=== PATIENT | male | born 1960 | race Caucasian/White ===

== ENCOUNTER → 2016-07-05 | Outpatient (CLI) | payer BC ==
[~2016-07-05] MED LIST: ACHD5005 PO; B12; CPR500T PO; FAMO-119 PO; LISI1TAB10 PO; LVT.1T PO; METR500T PO; PRD20T PO; SIMV20TA3 PO; [UNRECOGNIZED DRUG - OTHER]
--- NOTE | 2016-07-05 15:23 | Diagnostic Imaging Report ---
Ultrasound of the neck. INDICATION: Lump. FINDINGS: The area of the lump in the right aspect of the lower neck near the clavicle demonstrates no definite soft tissue mass seen. There is prominent osseous margin of the medial aspect of the right clavicle seen at the palpable area. No fluid collection seen. IMPRESSION: No soft tissue mass or fluid collection seen. Dictated by: Dictated on workstation # [id number]
== END ==
LOC: RAD 14:28
PROVIDERS: ATTEND Nurse Practitioner
DX: R22.1 Localized swelling, mass and lump, neck (principal)
CPT/HCPCS: 76536

== ENCOUNTER → 2016-07-10 | Outpatient (CLI) | payer BC ==
--- NOTE | 2016-07-10 12:48 | Diagnostic Imaging Report ---
INDICATION: Neck mass at right sternoclavicular junction. This has reportedly doubled in size over the last year. Comparison study: Chest from 2011. FINDINGS: Frontal and lateral views of the chest demonstrate the lungs to be clear. The heart, mediastinum and pulmonary vascularity are normal. Mild degenerative changes present in the spine. Postoperative changes of the left shoulder are stable. IMPRESSION: There are no acute findings. Dictated by: Dictated on workstation # [id number]
== END ==
LOC: RAD 11:48
PROVIDERS: ATTEND Family Medicine
DX: R22.1 Localized swelling, mass and lump, neck (principal)
CPT/HCPCS: 71020

== ENCOUNTER → 2016-08-17 | Outpatient (CLI) | payer BC ==
--- NOTE | 2016-08-17 14:48 | Diagnostic Imaging Report ---
PROCEDURE: CT neck soft tissue without contrast. TECHNIQUE: Multiple contiguous axial images were obtained through the neck without the use of intravenous contrast. INDICATION: Lump along the base of the right neck. Previous ultrasound of 07/05/2016 showed no mass. FINDINGS: Noncontrasted images show a BB marker over the right lower neck above the sternocleidomastoid. This overlies the right sternocleidomastoid which is approximately twice as large as the left. This is enlarged all the way suggesting this is hypertrophy as opposed to a focal mass. The subcutaneous tissue and deep fascial planes appear normal. The deep fat planes appear normal. No evidence of cervical chain adenopathy of pathologic size. The parotid and submandibular glands appear normal. The larynx appears normal. The oropharynx is normal as is the nasopharynx. The parapharyngeal tissue planes appear normal. No bony abnormality is demonstrated. IMPRESSION: Asymmetrical sternocleidomastoid muscles consistent with hypertrophy on the right correlating with the palpable area. Dictated by: Dictated on workstation # [id number]
== END ==
LOC: RAD 13:49
PROVIDERS: ATTEND Family Medicine
DX: R22.1 Localized swelling, mass and lump, neck (principal); M62.89 Other specified disorders of muscle
CPT/HCPCS: 70490

== ENCOUNTER 2018-02-10 12:19 | Outpatient (CLI) | payer BC, OTHER ==
[~2018-02-10] VITALS: Ht 177.8 cm; Wt 110.2 kg
[2018-02-10 12:30] VITALS: BP 150/79
[2018-02-10 13:31] LABS: BASOPHILS % (AUTO) 1 % (0-10); EOSINOPHILS # (AUTO) 0.2 10^3/uL (0.0-0.3); EOSINOPHILS % (AUTO) 4 % (0-10); HEMATOCRIT 44 % (40-54); HEMOGLOBIN 15.2 G/DL (13.3-17.7); LYMPHOCYTES # (AUTO) 1.4 X 10^3 (1.0-4.0); LYMPHOCYTES % (AUTO) 26 % (12-44); MEAN CORPUSCULAR HEMOGLOBIN 31 PG (25-34); MEAN CORPUSCULAR HGB CONC 35 G/DL (32-36); MEAN CORPUSCULAR VOLUME 88 FL (80-99); MEAN PLATELET VOLUME 8.4 FL (7.4-10.4); MONOCYTES # (AUTO) 0.7 X 10^3 (0.0-1.0); MONOCYTES % (AUTO) 12 % (0-12); NEUTROPHILS # (AUTO) 3.2 X 10^3 (1.8-7.8); NEUTROPHILS % (AUTO) 57 % (42-75); PLATELET COUNT 214 10^3/uL (130-400); RED BLOOD COUNT 4.99 10^6/uL (4.35-5.85); WHITE BLOOD COUNT 5.5 10^3/uL (4.3-11.0)
[2018-02-10 13:32] LABS: BILIRUBIN,URINE NEGATIVE (NEGATIVE); CLARITY,URINE CLEAR; COLOR,URINE YELLOW; GLUCOSE, URINE (UA) NEGATIVE (NEGATIVE); KETONES,URINE NEGATIVE (NEGATIVE); LEUKOCYTE ESTERASE ,URINE NEGATIVE (NEGATIVE); NITRITE,URINE NEGATIVE (NEGATIVE); PH,URINE 6.5 (5-9); PROTEIN,URINE NEGATIVE (NEGATIVE); UROBILINOGEN,URINE NORMAL (NORMAL)
[2018-02-10 13:38] LABS: BACTERIA,URINE NEGATIVE /HPF
[2018-02-10 13:41] LABS: PROTHROMBIN TIME PATIENT 12.8 SEC (12.2-14.7)
[2018-02-10] MEDS ORDERED: LEVO150T6 PO (13:47)
[2018-02-10] MEDS ORDERED: CELE200C PO (13:47)
[2018-02-10] MEDS ORDERED: LEVO175T5 PO (13:47)
[2018-02-10] MEDS ORDERED: LISI40TA PO (13:47)
[2018-02-10 13:49] LABS: ERYTHROCYTE SEDIMENTATION RATE 1 MM/HR (0-30)
[2018-02-10 13:50] LABS: ALANINE AMINOTRANSFERASE 37 U/L (0-55); ALBUMIN 4.3 GM/DL (3.2-4.5); ALKALINE PHOSPHATASE 55 U/L (40-136); BILIRUBIN,TOTAL 0.8 MG/DL (0.1-1.0); BUN/CREATININE RATIO 26; CALCIUM 9.6 MG/DL (8.5-10.1); CARBON DIOXIDE 26 MMOL/L (21-32); CHLORIDE 105 MMOL/L (98-107); CREATININE SERUM 0.86 MG/DL (0.60-1.30); GFR ESTIMATED > 60; GLUCOSE 107 MG/DL (70-105); SODIUM 139 MMOL/L (135-145); TOTAL PROTEIN 6.7 GM/DL (6.4-8.2)
[2018-02-10] MEDS ORDERED: OMEG100032 PO (13:50)
[2018-02-10] MEDS ORDERED: CHOL100048 PO (13:50)
[2018-02-10] MEDS ORDERED: VITA1TAB17 PO (13:50)
--- NOTE | 2018-02-10 14:29 | Diagnostic Imaging Report ---
INDICATION: Preoperative evaluation for knee replacement. COMPARISON: 07/10/2016 FINDINGS: Frontal and lateral views of the chest demonstrate normal heart size and pulmonary vascularity. The lungs are clear. There are no signs of infiltrate, pleural effusions or pneumothoraces. The visualized osseous structures show no acute abnormalities. IMPRESSION: 1. No acute process. No signs of infiltrates, effusions or pneumothoraces. Dictated by: Dictated on workstation # [id number]
== END 2018-02-10 13:25 | disposition home or self-care (01) ==
LOC: PREOP 12:19
PROVIDERS: ATTEND Orthopaedic Surgery
DX: Z01.810 Encounter for preprocedural cardiovascular examination (principal); Z01.811 Encounter for preprocedural respiratory examination; Z01.812 Encounter for preprocedural laboratory examination; Z11.2 Encounter for screening for other bacterial diseases; M17.11 Unilateral primary osteoarthritis, right knee; R53.83 Other fatigue
CPT/HCPCS: 36415; 71046; 80053; 81000; 85025; 85610; 85652; 86850; 86900; 86901; 87081

== ENCOUNTER 2018-02-19 05:57 | Inpatient (IN) | payer BC, OTHER ==
--- NOTE | 2018-02-10 12:55 | HISTORY AND PHYSICAL ---
DATE OF SERVICE: DATE OF ADMISSION AND DATE OF SERVICE: 02/19/2018 for right total knee arthroplasty. HISTORY OF PRESENT ILLNESS: The patient is a 57-year-old gentleman with longstanding right knee pain. He has undergone multiple arthroscopies in the past as well as injections. He reports progressive worsening function with marked activity limitations. He reports difficulty at work because of his knee. He has tried rest, injections, anti-inflammatories as well as weight loss, but has been unable to improve because this has elected to proceed with total knee arthroplasty. REVIEW OF SYSTEMS: No chest pain, no shortness of breath. No dysuria. RADIOGRAPHS: Reveal a near complete loss of the medial joint space with moderate patellofemoral joint space narrowing with osteophytes noted in all three compartments. PAST MEDICAL HISTORY: Hypertension and hypothyroidism. PAST SURGICAL HISTORY: Bilateral knee arthroscopies, left shoulder arthroscopy and left carpal tunnel and ulnar nerve decompression. FAMILY HISTORY: Significant for breast cancer, lung cancer. MEDICATIONS: Levothyroxine, lisinopril, Celebrex. PRIMARY CARE PROVIDER: Radha Smith DO. ALLERGIES: MORPHINE. SOCIAL HISTORY: The patient drinks 1 to 2 alcoholic beverages per week and denies tobacco history. PHYSICAL EXAMINATION: GENERAL: The patient is well developed, well nourished, in no acute distress. HEENT: Normocephalic, atraumatic. Pupils are equal, round and reactive to light. Oropharynx is clear. NECK: Supple, no lymphadenopathy. LUNGS: Clear to auscultation bilaterally. HEART: Regular rate and rhythm. ABDOMEN: Soft, nontender, nondistended. EXTREMITIES: Examination of the right knee demonstrates a moderate effusion. He has varus alignment. He is tender along his medial joint line. He has marked pain medially with Mirza's. Range of motion is 0/2/135. He is ligamentously stable in all planes. He ambulates with an antalgic gait. IMPRESSION: Right knee osteoarthritis, unresponsive to conservative measures. PLAN: Right total knee arthroplasty. The risks, benefits, options, ramifications and recovery have been discussed at length with the patient. He understands and wishes to proceed. In addition, the patient will require inpatient admission for gait training, pain management and strengthening. Job ID: [id number] DocumentID: [id number] Dictated Date: 02/10/2018 11:25:46 Underwriter Date: 02/10/2018 12:54:30 Dictated By: RYAN SHEIKH MD
[~2018-02-19] VITALS: Ht 177.8 cm; Wt 110.2 kg
[~2018-02-19 05:57] MED LIST changes: +CELE200C PO; +CHOL100048 PO; +LEVO150T6 PO; +LEVO175T5 PO; +LISI40TA PO; +OMEG100032 PO; +VITA1TAB17 PO
[2018-02-19 06:15] VITALS: BP 127/65
[2018-02-19] MEDS ORDERED: CEFUROXIME INJECTION 1,500 MG in NS (IVPB) 50 ML IV ONE (06:30)
[2018-02-19] MEDS: LACTATED RINGERS 1,000 ML IV PRN ×2 (06:35→08:45)
[2018-02-19] MEDS ORDERED: DEXAMETHASONE 10 MG/ML (DECADRON) 1 ML VIAL ONE (06:49)
[2018-02-19] MEDS ORDERED: ONDANSETRON 4 MG/2 ML (SDV) Z0FRAN ONE ×3 (06:49→09:50)
[2018-02-19] MEDS ORDERED: LIDOCAINE PF 2% 5 ML (XYLOCAINE) VIAL ONE (06:49)
[2018-02-19] MEDS ORDERED: proPOfol 200 MG/20 ML (DIPRIVAN) VIAL IV ONE (06:49)
[2018-02-19] MEDS ORDERED: SEVOFLURANE (ULTANE) 15 ML INHAL SOLN ONE ×2 (06:49→08:58)
[2018-02-19] MEDS ORDERED: fentaNYL INJECTION 100 MCG/2 ML AMP ONE ×3 (06:50→09:01)
[2018-02-19] MEDS ORDERED: MIDAZOLAM 2 MG/2 ML (VERSED) VIAL ONE (06:50)
[2018-02-19] MEDS ORDERED: FAMOTIDINE 20MG/2ML IV (PEPCID) ONE (06:51)
[2018-02-19] MEDS ORDERED: SCOPOLAMINE 1.5 MG (TRANSDERM-SCOP) PATCH ONE (06:51)
[2018-02-19] MEDS ORDERED: FAMOTIDINE 20MG/2ML IV (PEPCID) IV ONE (07:00)
[2018-02-19] MEDS ORDERED: ONDANSETRON 4 MG/2 ML (SDV) Z0FRAN IV ONE (07:00)
[2018-02-19] MEDS ORDERED: SCOPOLAMINE 1.5 MG (TRANSDERM-SCOP) PATCH TOP ONE (07:00)
[2018-02-19] MEDS ORDERED: FENTANYL IV PRN (07:15)
[2018-02-19] MEDS ORDERED: SODIUM CHLORIDE IV PRN (07:15)
[2018-02-19] MEDS ORDERED: ONDANSETRON 4 MG/2 ML (SDV) Z0FRAN IVP PRN ×2 (07:15→09:30)
[2018-02-19] MEDS ORDERED: diphenhydrAMINE 50 MG/ML INJ (BENADRYL) IVP PRN (07:15)
[2018-02-19] MEDS ORDERED: ACETAMINOPHEN 325 MG TABLET PO PRN (07:15)
--- NOTE | 2018-02-19 07:29 | Progress Note-Post Operative ---
Post-Operative Progess Note Surgeon (s)/Manager Recovery (s) Surgeon RYAN SHEIKH MD Manager Recovery: Luis Purvis Pre-Operative Diagnosis right knee primary osteoarthritis Post-Operative Diagnosis right knee primary osteoarthritis Procedure & Operative Findings Date of Procedure 02/19/18 Procedure Performed/Findings right total knee arthroplasty Anesthesia Type GETA Estimated Blood Loss Estimated blood loss (mL): minimal Specimens/Packing Specimens Removed none Packing: none RYAN SHEIKH MD Feb 19, 2018 07:29
--- NOTE | 2018-02-19 07:29 | Progress Note-Pre Operative ---
Pre-Operative Progress Note H&P Reviewed The H&P was reviewed, patient examined and no changes noted. Date Seen by Provider: Feb 19, 2018 Time Seen by Provider: 07:15 Date H&P Reviewed: Feb 19, 2018 Time H&P Reviewed: 07:11 Pre-Operative Diagnosis: right knee primary osteoarthritis RYAN SHEIKH MD Feb 19, 2018 07:28
[2018-02-19] MEDS ORDERED: INTRA-ARTICULAR IU ONE ×5 (07:30)
[2018-02-19] MEDS ORDERED: OXYC1TAB87 PO (07:31)
--- NOTE | 2018-02-19 07:33 | D/C HH Face to Face Order ---
D/C Face to Face Orders Instructions for Patient Via [facility], Patient Instructions/FollowUp: three weeks Physician to follow Patient: three weeks Discharge Diet for Home: Regular Diet Patient Data-Allergies,Ht & Wt Patient Allergies: Coded Allergies: morphine (Verified Allergy, Unknown, 02/10/18) Height (Feet): 5 Height (Inches): 10.00 Weight (Pounds): 243 Weight (Ounces): 0.0 Home Health Need/Face to Face Date of Face to Face: Feb 19, 2018 Clinical Findings: Instability, Muscle weakness, Pain with ambulation, Unsteady gait I have seen Pt [id number]: Yes Discharged To: Home Diagnosis/Conditions: right total knee arthroplasty Patient is Homebound due to: Gurjit fall risk due to instabilty, Muscle weakness , Pain w/ambulation Homebound Status Due to the above stated illness, injury or surgical procedure (medical condition or diagnosis) and associated clinical findings, the patient is homebound because of his/her inability to leave home except with aid of a supportive device and/or person AND leaving the home requires a considerable and taxing effort or is medically contraindicated. Pt req the following assistanc: [facility] Nursing Orders Home Health Services Order: Physical Therapy-Evaluate & Treat Therapy Orders Therapy Orders: Physical Therapy, PT to assess for OT Therapy Specific Orders: Eval assistive deivces (DC right knee misael and apply steri strips 03/05/18), Teach enviro modifications/safety, Gait training, Increase strength/endurance, Provider maintenance therapy, Restore ROM Certify Stmt I certify that this patient is under my care and that I, a nurse practitioner or a physician; a assistant store leader working with me, had a face to face encounter that - meets the physician face to face encounter requirements with this patient as dated. RYAN SHEIKH MD Feb 19, 2018 07:33
[2018-02-19] MEDS ORDERED: TRANEXAMIC ACID 100 MG/ML 10 ML INJECTION IV ONE (07:57)
[2018-02-19] MEDS ORDERED: morphine INJ 10 MG/ML 1ML (SYR OR VIAL) ONE (09:15)
[2018-02-19] MEDS ORDERED: HYDROmorphone 2 MG/ML VIAL (DILAUDID) ONE (09:23)
[2018-02-19] MEDS ORDERED: HYDROmorphone 2 MG/ML VIAL (DILAUDID) IV ONE (09:30)
[2018-02-19] MEDS ORDERED: PROMETHAZINE INJ 25 MG/ML (PHENERGAN) AMP IVP ONE (09:30)
[2018-02-19] MEDS ORDERED: fentaNYL INJECTION 100 MCG/2 ML AMP IVP ONE (09:30)
[2018-02-19 10:30] VITALS: BP 153/71
[2018-02-19] MEDS: SENNA W/DOCUSATE (SENOKOT S) TABLET PO SCH ×2 (10:50→21:20)
--- NOTE | 2018-02-19 11:08 | Diagnostic Imaging Report ---
INDICATION: Right knee pain. FINDINGS: AP and lateral views of the right knee were obtained following joint arthroplasty. The prosthesis appears to be in good position. The alignment is normal. IMPRESSION: Good alignment of the right knee following joint arthroplasty. Dictated by: Dictated on workstation # [id number]
[2018-02-19] MEDS ORDERED: fentaNYL PCA 1,000 MCG/NS 80 ML (TOTAL VOLUME 100 ML) INJ SCH ×2 (11:15)
[2018-02-19] MEDS: NS IV 1000 ML 1,000 ML IV SCH ×2 (11:29→22:58)
[2018-02-19 12:00] VITALS: BP 148/70
[2018-02-19] MEDS ORDERED: FLU QUADRIvalent (5+ YOA) 2018-2019 (AFLURIA) 0.5 ML IM ONE (12:15)
--- NOTE | 2018-02-19 12:25 | OPERATIVE REPORT ---
DATE OF SERVICE: 02/19/2018 PREOPERATIVE DIAGNOSIS: Right knee primary osteoarthritis. POSTOPERATIVE DIAGNOSIS: Right knee primary osteoarthritis. PROCEDURE: Right total knee arthroplasty. SURGEON: Jens Sheikh MD. HARD ROCK MINER BLASTING: Luis Purvis, who assisted throughout the procedure and closed the incision. ANESTHESIA: General endotracheal by Dr. Willis. TOURNIQUET TIME: Approximately 80 minutes at 300 mmHg. ESTIMATED BLOOD LOSS: Minimal. DRAINS: None. COMPLICATIONS: None. MATERIALS: MicroPort cemented size 5 femur, cemented size 5, tibia with a 10 mm insert and cemented size 32 patella. The patient was transported to the recovery room awake and in stable condition. POSTOPERATIVE PLAN: Routine protocol. STATEMENT OF MEDICAL NECESSITY: The patient is a 57-year-old gentleman with longstanding progressive right knee pain. He had undergone treatment with multiple arthroscopies as well as injections and anti-inflammatories. His knee pain progressed to the point where he was having difficulty with activities of daily living and due to failure to respond to conservative measures, the patient elected to proceed with surgical intervention. DESCRIPTION OF PROCEDURE: After risks and benefits of the procedure were discussed and questions were answered and informed consent was signed and placed on chart, the operative site was confirmed in the preoperative holding area initialed by the surgeon. The patient was then transported to the operating room and after adequate levels of general endotracheal anesthetic were obtained and timeout was called confirming the operative site, the right lower extremity was prepped and draped in the usual sterile fashion with the leg elevated and the knee flexed, the tourniquet was inflated to 300 mmHg. Standard anterior approach was utilized. Hemostasis was obtained with cautery. A medial parapatellar arthrotomy was performed leaving 1 cm cuff on the patella for later reapproximation. A portion of the fat pad was resected. A subperiosteal release was performed on the proximal medial tibia being careful to stay on the bony surface. ACL was resected. Intramedullary guide was passed into the femur. The distal cutting block was placed. The distal cut was made and the femur was sized to a size 5. The 5 cutting block was placed parallel to the epicondylar axis and cuts were made from posterior to anterior. A subperiosteal release was then carefully performed on the posterior distal femur being careful to stay on the bony surface. The intramedullary guide was then passed into the tibia. The drop lesley transected the intramedullary access and the cut was made. The baseplate was placed and again the drop lesley transected the intramedullary access. This was prepared with a drill and a keel punch. The trials were inserted. The patella was then prepared by resecting 10 mm off the undersurface using freehand technique. The peg guide was placed and the peg holes were drilled. The trials were inserted. The knee was taken through a range of motion. Full extension was easily obtained. A 120 degrees of flexion with gravity was easily obtained. The patella tracked well. There was no anterior/posterior or medial/lateral laxity in flexion or extension. The trochlear cut was made and the trials were removed. The joint was copiously irrigated with pulse lavage. Periarticular block was placed in the posterior capsule, medial and lateral retinaculum extensor mechanism and subcutaneous tissues. The bone ends were irrigated and dried. The tibial baseplate was then cemented into position. Excessive cement was removed. The superior surface was irrigated and dried and the polyethylene insert was placed. The distal femur was irrigated and dried and the femoral prosthesis was cemented into the position. The knee was brought out in full extension until the cement had cured. The undersurface of the patella was irrigated and dried. The patellar button was cemented into position. Excess cement was removed. Once the cement had cured, the knee was taken through a range of motion. Full extension was obtained and 120 degrees of gravity was easily obtained. There was no anterior/posterior or medial/lateral laxity in flexion or extension. The patella tracked well. Joint was further irrigated with a pulse lavage. Arthrotomy was closed with #2 Tevdek in [id number] interrupted fashion. The knee was flexed and no undue tension was noted at the repair site. Subcutaneous tissues were irrigated with pulse lavage using a total of 6 liters throughout the procedure. A 0 Vicryl was used for the deep subcutaneous tissue, 2-0 Vicryl for the superficial subcutaneous tissue and misael were used on the skin. A soft dressing was applied. The tourniquet was deflated and the patient was transferred to the recovery room awake and in stable condition. Job ID: [id number] DocumentID: [id number] Dictated Date: 02/19/2018 09:19:25 Tool Grinder Operator Date: 02/19/2018 12:24:46 Dictated By: JENS SHEIKH MD
--- NOTE | 2018-02-19 12:33 | Progress Note-Standard ---
Standard Progress Note Progress Notes/Assess & Plan Date Seen by a Provider: Feb 19, 2018 Time Seen by a Provider: 12:31 Progress/Assessment & Plan post op check denies paresthesias radiographs--HW well positioned without fracture RLE--intact DF and PF of toes and ankle with 2 plus DP pulse and brisk cap refill. sensation intact throughout s/p RTKA mobilize as able RYAN SHEIKH MD Feb 19, 2018 12:33
[2018-02-19] MEDS: CEFUROXIME INJECTION 750 MG in NS (IVPB) 50 ML IV SCH ×2 (15:05→22:57)
--- NOTE | 2018-02-19 15:22 | Physical Therapy Evaluation ---
PT Evaluation-General Medical Diagnosis Admission Date Feb 19, 2018 at 05:57 Medical Diagnosis: TKA R Onset Date: Feb 19, 2018 Therapy Diagnosis Therapy Diagnosis: General weakness/ Debility Height/Weight Height (Feet): 5 Height (Inches): 10.00 Weight (Pounds): 243 Weight (Ounces): 0.0 Precautions Precautions/Isolations: Fall Prevention, Standard Precautions Weight Bear Status Right Lower Extremity: Right Weight Bearing/Tolerated Left Lower Extremity: Left Full Weight Bearing Referral Physician: Luis Purvis Reason for Referral: Evaluation/Treatment Medical History Pertinent Medical History: HTN, Hypothroidism Current History Patient had total knee surgery on R knee on 02/19/18. Reviewed History: Yes Social History Home: Multilevel Current Living Status: Children Entry Into Home: Stairs With Railing PT Steps Into Home: 5 PT Steps Inside Home: 0 Prior/Core FIM Prior Level of Function Functional Jasper Measure 0=Not Assessed/NA 4=Minimal Assistance 1=Total Assistance 5=Supervision or Setup 2=Maximal Assistance 6=Modified Jasper 3=Moderate Assistance 7=Complete IndependenceIRFPAI Quality Coding Scale 6 Independent with activity with or without an assistive device 5 Patient requires set up or clean up by helper. Patient completes activity by themselves 4 Supervision or touching assist (CGA). Kenyon provide cues , steadying assist 3 The helper provides less than half the effort to complete the activity 2 The helper provides more than half the effort to complete the activity 1 Dependent. The helper does all the effort to complete an activity 7 Patient refused to complete or attempt activity 9 The patient did not perform the activity before the current illness or injury 88 Not attempted due to Medical conditions or safety concerns Bed Mobility: 7 Transfers (B,C,W/C) (FIM): 7 Gait: 7 Stairs: 7 PT Evaluation-Current Subjective Pt asleep in room when PT arrived. Pt reported he has been experiencing nausea since he got out of surgery and nursing has reported that he dry heaves with any movement. Pt agreed to PT evaluation. Pain Numeric Pain Scale: 5-Moderate Pain Location: Right Location Body Site: Knee Pain Description: Acute Pt/Family Goals to be independent at home Objective Patient Orientation: Normal For Age Attachments: SCD's, Polar Pack, IV ROM/Strength ROM Upper Extremities WNL ROM Lower Extremities Right knee flexion 85 degrees and 2-3 degrees from complete extension. L WNL Strength Upper Extremities NT Strength Lower Extremities LEs will be tested once patient nausea subsides. Patient did not receive nerve block and was unable DF his right foot. Neuromuscular (Tone, Coordination, Reflexes) NT Sensory Vision: Functional Hearing: Functional Sensation Right Upper Extremit: Intact Sensation Left Upper Extremity: Intact Sensation Right Lower Extremit: Intact Sensation Left Lower Extremity: Intact Transfers Functional Jasper Measure 0=Not Assessed/NA 4=Minimal Assistance 1=Total Assistance 5=Supervision or Setup 2=Maximal Assistance 6=Modified Jasper 3=Moderate Assistance 7=Complete Jasper Transfers (B, C, W/C) (FIM): 0 Scootin Rollin Supine to/from Sit: 0 Sit to/from Stand: 0 Balance Sitting Static: Good Sitting Dynamic: Good Standing Static: Good Standing Dynamic: Good Assessment/Needs Pt experienced extreme nausea throughout the duration of the evaluation. Pt experienced symptoms during questions and had to pause multiple times to let symptoms pass. Pt completed SAC, Quad sets, heel slides and SLR while laying bed. Pt understood to continue on his own when therapy is not present. Patient was set up in CPM when PT left room set to 70/-2 Rehab Potential: Fair PT Usp Goals Technician Helper Instrument Goals PT Usp Goals Time Frame: Feb 26, 2018 Transfers (B,C,W/C) (FIM): 5 Gait (FIM): 5 Gait distance (FIM): 3=150 ft Distance: 150' Gait Level of Assist: 5 Gait Assistive Device: FWW PT Plan Problem List Problem List: Activity Tolerance, Functional Strength, Safety, Balance, Gait, Transfer, Bed Mobility, ROM Treatment/Plan Treatment Plan: Continue Plan of Care Treatment Plan: Bed Mobility, Education, Functional Activity Jorge Luis, Functional Strength, Gait, Safety, Therapeutic Exercise, Transfers Treatment Duration: Feb 26, 2018 Frequency: 11 times per week Estimated Hrs Per Day: .25 hour per day Patient and/or Family Agrees t: Yes Safety Risks/Education Patient Education: Gait Training, Steps, Reviewed Precautions, Correct Positioning Teaching Recipient: Patient Teaching Methods: Demonstration, Discussion Response to Teaching: Verbalize Understanding Discharge Recommendations Plan Patient will perform bed mobility and transfer training, balance and endurance training, functional strengthening, stair training, gait training, and education , to improve functional mobility and independence at home. Therapy D/C Recommendations: Home w/ Family Support Time/GCodes Time In: 240 Time Out: 310 Total Billed Treatment Time: 30 Total Billed Treatment 1 visit EVM - 20' Ex - 10' SERA DUFFY PT Feb 19, 2018 15:22
[2018-02-19 15:35] VITALS: BP 142/70
[2018-02-19] MEDS ORDERED: CHOL5000 PO (16:03)
[2018-02-19] MEDS ORDERED: OMEG1CAP24 PO (16:03)
[2018-02-19 19:07] VITALS: BP 145/80
[2018-02-19] MEDS ORDERED: NON-FORMULARY MEDICATION 1 EA EA (Levothyroxine Sodium 175 MCG) PO SCH (19:15)
[2018-02-19] MEDS ORDERED: LORazepam 0.5 MG (ATIVAN) TABLET PO PRN (19:15)
--- NOTE | 2018-02-19 19:22 | Consultation ---
History of Present Illness History of Present Illness Patient Consulted On(neto/time) 02/19/18 19:17 Date Seen by Provider: Feb 19, 2018 Time Seen by Provider: 19:17 History of Present Illness This is a 57 year old male with history of hypertension, hypothyroidism and metabolic syndrome who underwent a right total knee arthroplasty by Dr. Sheikh this morning. He has had post-op vertiog and nausea today but tonight states he is feeling a little better. Denies pain. Allergies and Home Medications Allergies Coded Allergies: morphine (Verified Allergy, Unknown, 02/10/18) Home Medications Celecoxib 200 Mg Capsule, 200 MG PO BID, (Reported) Cholecalciferol (Vitamin D3) 5,000 Unit Capsule, 10,000 UNIT PO DAILY, (Reported ) Levothyroxine Sodium 150 Mcg Tablet, 150 MCG PO Q48H, (Reported) alternate with the 175mcg dose Levothyroxine Sodium 175 Mcg Tablet, 175 MCG PO Q48H, (Reported) alternate with the 150mcg dose Lisinopril 40 Mg Tablet, 40 MG PO DAILY, (Reported) [place]-3 Fatty Acids/Fish Oil 1 Each Capsule.dr, 2 CAP PO DAILY, (Reported) Oxycodone HCl/Acetaminophen 1 Each Tablet, 1 EACH PO Q4H PRN for PAIN-MODERATE Prescribed by: RYAN SHEIKH on 02/19/18 0731 Vitamin B Complex 1 Each Tablet, 1 TAB PO DAILY, (Reported) Patient Home Medication List Home Medication List Reviewed: Yes Past Zwbiyoh-Plzokp-Xzdbtw Hx Patient Social History Alcohol Use: Occasionally Uses Recreational Drug Use: No Smoking Status: Former Smoker Former Smoker, Quit: Feb 11, 1984 Recent Foreign Travel: No Contact w/Someone Who Travel: No Recent Infectious Disease Expo: No Recent Hopitalizations: No Seasonal Allergies Seasonal Allergies: No Past Medical History Surgeries: Yes (bilat knee scopes x8 total, L shoulder sx x2, varicocelectomy, L CTR, ) Respiratory: No Cardiac: No Neurological: No Genitourinary: No Gastrointestinal: No Musculoskeletal: Yes (R knee osteoarthritis) Endocrine: Yes HEENT: No (wears glasses, ) Cancer: No Psychosocial: No Integumentary: No Blood Disorders: No Family Medical History Alcoholism 19 FATHER Diabetes mellitus 19 MOTHER FH: breast cancer 19 MOTHER Hypertension 19 MOTHER Kidney disease Neoplasm Respiratory disorder 19 FATHER (lung cancer) Review of Systems-General Constitutional: No no symptoms reported, No see HPI, No chills, No diaphoresis , No dizziness, No fever, No malaise, No weakness, No weight gain, No weight loss, No other EENTM: No see HPI, No no symptoms reported, No ear discharge, No hearing loss, No ear pain, No blurred vision, No double vision, No eye pain, No tearing, No vision loss, No dental problems, No hoarseness, No mouth pain, No mouth swelling , No epistaxis, No nose congestion, No nose pain, No throat pain, No throat swelling, No other Respiratory: No no symptoms reported, No see HPI, No cough, No dyspnea on exertion, No hemoptysis, No orthopnea, No phlegm, No short of breath, No stridor , No wheezing, No other Cardiovascular: No no symptoms reported, No see HPI, No chest pain, No edema, No Hx of Intervention, No palpitations, No syncope, No vascular heart diseas, No other Gastrointestinal: nausea Genitourinary: No no symptoms reported, No see HPI, No decreased output, No discharge, No dysuria, No frequency, No hematuria, No hesitancy, No incontinence , No nocturia, No pain, No other Musculoskeletal: joint pain (right knee pain currently well controlled) Skin: No no symptoms reported, No see HPI, No change in color, No change in hair/nails, No dryness, No hx of skin cancer, No lesions, No lumps, No pruritus , No rash, No other Psychiatric/Neurological: Other (vertigo) Physical Exam-General Problems Physical Exam Vital Signs Vital Signs - First Documented 02/19/18 02/19/18 06:15 10:30 Temp 97.1 Pulse 60 Resp 18 B/P (MAP) 127/65 (85) Pulse Ox 97 O2 Delivery Room Air O2 Flow Rate 2.00 Capillary Refill : Less Than 3 Seconds General Appearance: WD/WN, no apparent distress HEENT: normal ENT inspection Neck: supple Respiratory: lungs clear Cardiovascular: regular rate, rhythm, gallop/S4 Gastrointestinal: normal bowel sounds, non tender, soft Rectal: deferred Back: no CVA tenderness Extremities: non-tender, no pedal edema, no calf tenderness Neurologic/Psychiatric: alert, oriented x 3 Skin: warm/dry (with dressing to right knee in place) Assessment/Plan Assessment/Plan Admission Diagnosis/Plan 1. Right Total Knee Arthroplasty with post-op vertigo and nausea--has scopolamine patch on and will give ativan tonight 2. Hypertension--resume home medications in AM 3. Hypothyroidism--resume home thyroid dose Clinical Quality Measures DVT/VTE Risk/Contraindication: Risk Factor Score Per Nursin RFS Level Per Nursing on Admit: 4+=Very High GUALBERTO MENA DO Feb 19, 2018 19:22
[2018-02-19] MEDS ORDERED: NON-FORMULARY MEDICATION 1 EA EA (Celecoxib (Celebrex) 200 MG) PO SCH (21:00)
[2018-02-19] MEDS: FAMOTIDINE 20 MG (PEPCID) TABLET PO SCH (21:22)
[2018-02-20 00:44] VITALS: BP 145/67
[2018-02-20 03:59] VITALS: BP 118/67
[2018-02-20 04:36] LABS: HEMOGLOBIN 12.7 G/DL (13.3-17.7)
[2018-02-20] MEDS: MULTIVIT W/MINERALS TAB (THERAGRAN M) PO SCH (06:10)
[2018-02-20] MEDS: CELECOXIB 100 MG (CeleBREX) CAP PO SCH ×2 (06:10→17:36)
[2018-02-20] MEDS ORDERED: LEVOTHYROXINE 150 MCG (LEVOTHROID) TAB PO SCH (06:30)
[2018-02-20 08:00] VITALS: BP 131/60
--- NOTE | 2018-02-20 08:05 | Progress Note-Standard ---
Standard Progress Note Progress Notes/Assess & Plan Date Seen by a Provider: Feb 20, 2018 Time Seen by a Provider: 08:04 Progress/Assessment & Plan post op check denies paresthesias radiographs--HW well positioned without fracture RLE--intact DF and PF of toes and ankle with 2 plus DP pulse and brisk cap refill. sensation intact throughout s/p RTKA mobilize as able Final Diagnosis no complaints Vital Signs Date Time Temp Pulse Resp B/P (MAP) Pulse Ox O2 Delivery O2 Flow Rate FiO2 02/20/18 07:09 95 Room Air 02/20/18 06:00 18 02/20/18 03:59 97.8 72 18 118/67 (84) 98 Nasal Cannula 2.00 02/20/18 00:44 98.0 81 18 145/67 (93) 98 Nasal Cannula 2.00 02/19/18 23:50 Nasal Cannula 2.50 02/19/18 19:07 96.7 77 18 145/80 (101) 98 Nasal Cannula 2.00 02/19/18 15:35 96.9 54 16 142/70 (94) 99 Nasal Cannula 2.00 02/19/18 14:10 Nasal Cannula 2.50 02/19/18 12:15 96 Nasal Cannula 2.00 02/19/18 12:00 97.8 75 16 148/70 (96) 100 Nasal Cannula 2.00 02/19/18 10:30 98.6 80 16 153/71 (98) 100 Nasal Cannula 2.00 I & O 02/20/18 07:00 Intake Total 3200 ml Output Total 1400 ml Balance 1800 ml Laboratory Tests Test 02/20/18 04:20 Range/Units Hemoglobin 12.7 L 13.3-17.7 G/DL Hematocrit 36 L 40-54 % RLE--dressing intact. No calf tenderness. NVI distally. Intact DF of ankle s/p RTKA doing well PT/OT RYAN SHEIKH MD Feb 20, 2018 08:05
[2018-02-20] MEDS: oxyCODONE/APAP 5/325MG (PERCOCET 5) TABLET PO PRN ×5 (08:46→23:55)
[2018-02-20] MEDS: SENNA W/DOCUSATE (SENOKOT S) TABLET PO SCH ×2 (08:53→20:42)
[2018-02-20] MEDS: lisINopril 40 MG (PRINIVIL) TABLET PO SCH (08:55)
[2018-02-20] MEDS: FAMOTIDINE 20 MG (PEPCID) TABLET PO SCH ×2 (08:55→20:42)
[2018-02-20] MEDS: ENOXAPARIN 30 MG/0.3 ML (LOVENOX) SYR SC SCH ×2 (08:55→19:42)
[2018-02-20] MEDS: ASPIRIN E.C. 81 MG (ECOTRIN) TAB PO SCH (08:57)
[2018-02-20] MEDS: VITAMIN D3 5,000 UNITS (CHOLECALCIFEROL ) CAPSULE PO SCH (08:57)
[2018-02-20] MEDS ORDERED: NON-FORMULARY MEDICATION 1 EA EA (Cholecalciferol (Vitamin D3) (Vitamin D3) 10,000 UNIT) PO SCH (09:00)
[2018-02-20] MEDS: NS IV 1000 ML 1,000 ML IV SCH ×2 (09:00→23:54)
--- NOTE | 2018-02-20 09:26 | Physical Therapy Daily Note ---
PT Daily Note-Current Subjective Pt awake in bed when PT arrived. Pt reported that he just finished breakfast and that his nausea had subsided. Pt agreed to get up and exercise with PT. Pain Numeric Pain Scale: 5-Moderate Pain Location: Right Location Body Site: Knee Pain Description: Acute Mental Status Patient Orientation: Normal For Age Attachments: IV Transfers Functional [place] Measure 0=Not Assessed/NA 4=Minimal Assistance 1=Total Assistance 5=Supervision or Setup 2=Maximal Assistance 6=Modified [place] 3=Moderate Assistance 7=Complete IndependenceIRFPAI Quality Coding Scale 6 Independent with activity with or without an assistive device 5 Patient requires set up or clean up by helper. Patient completes activity by themselves 4 Supervision or touching assist (CGA). [place] provide cues , steadying assist 3 The helper provides less than half the effort to complete the activity 2 The helper provides more than half the effort to complete the activity 1 Dependent. The helper does all the effort to complete an activity 7 Patient refused to complete or attempt activity 9 The patient did not perform the activity before the current illness or injury 88 Not attempted due to Medical conditions or safety concerns Transfers (B, C, W/C) (FIM): 5 Scootin Rollin Supine to/from Sit: 5 Sit to/from Stand: 5 Weight Bearing Right Lower Extremity: Right Weight Bearing/Tolerated Left Lower Extremity: Left Full Weight Bearing Gait Training Gait (FIM): 5 Distance (FIM): 3=150 ft Distance: 150' Gait Level of Assist: 5 Gait Persons Needed: 1 Gait Assistive Device: FWW Exercises Supine Ex: Quad Set, Heel Slides, Straight leg raise Seated Therapy Exercises: Long arc quads, Hamstring Curls Assessment Current Status: Good Progress Pt was able to ambulate 150' with a FWW requiring SBA. Patient did not show any signs of fatigue but did mention he had a 5/10 pain rating. Patient performed bed exercises prior to ambulation and return to his recliner when coming back to his room. Pt will benefit from strengthening and ambulation with PT to improve overall function. PT Assisted Goals Assisted Goals PT Cryptozoologist Goals Time Frame: Feb 26, 2018 Transfers (B,C,W/C) (FIM): 5 Gait (FIM): 5 Gait distance (FIM): 3=150 ft Distance: 150' Gait Level of Assist: 5 Gait Assistive Device: FWW PT Plan Problem List Problem List: Activity Tolerance, Functional Strength, Safety, Balance, Gait, Transfer Treatment/Plan Treatment Plan: Continue Plan of Care Treatment Plan: Bed Mobility, Education, Functional Activity Jorge Luis, Functional Strength, Gait, Safety, Therapeutic Exercise, Transfers Treatment Duration: Feb 26, 2018 Frequency: 11 times per week Estimated Hrs Per Day: .25 hour per day Patient and/or Family Agrees t: Yes Time/GCodes Time In: 820 Time Out: 850 Total Billed Treatment Time: 30 Total Billed Treatment 1 visit GT - 15' EX - 15' ZHAO CHEN PT Feb 20, 2018 09:26
--- NOTE | 2018-02-20 11:05 | Anesthesia-General Post-Op ---
General Patient Condition Mental Status/LOC: Same as Preop Cardiovascular: Satisfactory Nausea/Vomiting: Absent (Patient did have some PONV. Treated per nursing.) Respiratory: Satisfactory Pain: Controlled Complications: Absent Post Op Complications Complications None Follow Up Care/Instructions Patient Instructions None needed. Anesthesia/Patient Condition Patient Condition Patient is doing well, no complaints, stable vital signs, no apparent adverse anesthesia problems. No complications reported per nursing. ELIZA PHAM CRNA Feb 20, 2018 11:05
--- NOTE | 2018-02-20 11:45 | Occupational Therapy Eval ---
OT Evaluation-General/PLF Medical Diagnosis Admission Date Feb 19, 2018 at 05:57 Medical Diagnosis: TKA R Onset Date: Feb 19, 2018 Therapy Diagnosis Therapy Diagnosis: decr self care, decr funct mobility Height/Weight Height (Feet): 5 Height (Inches): 10.00 Weight (Pounds): 243 Weight (Ounces): 0.0 Precautions Precautions/Isolations: Standard Precautions Safety Interventions: None Weight Bear Status Weight Bearing Restriction: Weight Bearing/Tolerated Location Restriction: R LE Referral Physician: Luis Purvis Referral Reason: Evaluation/Treatment Medical History Pertinent Medical History: HTN, Hypothroidism Additional Medical History L shoulder arthroscopy, L CTR and ulnar nerve decompression. Multiple knee scopes. Metabolic syndrome. Pt reported hx concussion and cervical problems. Current History Elective R total knee replacement. Nausea and vomiting post-op Reviewed History: Yes Social History Home: Multilevel Current Living Status: Children Entry Into Home: Stairs With Railing Steps Into Home: 5 Steps Inside Home: 0 ADL-Prior Level of Function Functional [place] Measure 0=Not Assessed/NA 4=Minimal Assistance 1=Total Assistance 5=Supervision or Setup 2=Maximal Assistance 6=Modified [place] 3=Moderate Assistance 7=Complete [place] ADL PLOF Comments Pt reported that he has been able to manage all of his basic ADLs, with more recent occasional difficulty with socks and shoes, due to knee pain. 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 No cognitive issues. Self Care OT Current Status Subjective Pt seen in room, up in recliner, agreeable to OT. Reported not really in any pain. Appearance Alert, cooperative Mental Status/Objective Patient Orientation: Person, Place, Time, Situation Attachments: IV, Polar Pack Current Glasses/Contacts: Yes Hand Dominance: Right Upper Extremity ROM Grossly WFL bilat Upper Extremity Sensation residual numbness some fingers L hand Upper Extremity Strength Grossly WFL bilat ADL-Treatment ADL-Current Pt reported that he has been up to the bathroom but does ask for help due to IV and equipment.. Walked 150 ft with SBA, FWW with PT. Pt verbalized adapted techniques he used at home for ADLs but was interested in equipment for socks/ shoes. Pt left up in recliner, all needs met. Functional [place] Measure 0=Not Assessed/NA 4=Minimal Assistance 1=Total Assistance 5=Supervision or Setup 2=Maximal Assistance 6=Modified [place] 3=Moderate Assistance 7=Complete IndependenceIRFPAI Quality Coding Scale 6 Independent with activity with or without an assistive device 5 Patient requires set up or clean up by helper. Patient completes activity by themselves 4 Supervision or touching assist (CGA). [place] provide cues , steadying assist 3 The helper provides less than half the effort to complete the activity 2 The helper provides more than half the effort to complete the activity 1 Dependent. The helper does all the effort to complete an activity 7 Patient refused to complete or attempt activity 9 The patient did not perform the activity before the current illness or injury 88 Not attempted due to Medical conditions or safety concerns Education OT Patient Education: Modified ADL techniques, Purpose of tx/functional activities, Rehab process, Transfer techniques, Use of adapted equipment Teaching Recipient: Patient Teaching Methods: Discussion Response to Teaching: Verbalize Understanding OT [facility] Goals Medical Administrative Assistant Goals Time Frame: Feb 22, 2018 Bathing(FIM): 5 Upper Body Dressing(FIM): 6 Lower Body Dressing(FIM): 6 Toileting(FIM): 6 Toilet/Commode Transfer(FIM): 6 Shower Transfer(FIM): 5 Additional Goals: 1-Demonstrate ADL Tasks, 2-Verbalize Understanding, 3- ImproveStrength/Jorge Luis 1=Demonstrate adherence to instructed precautions during ADL tasks. 2=Patient will verbalize/demonstrate understanding of assistive devices/ modifications for ADL. 3=Patient will improve strength/tolerance for activity to enable patient to perform ADL's. OT Education/Plan Problem List/Assessment Assessment: Dependent Transfers, Impaired Self-Care Skills Pt would benefit from skilled OT to increase his independence in basic self care to allow him to safely return home. Discharge Recommendations Plan/Recommendations: Continue POC Therapy D/C Recommendations: Home w/ Family Support Treatment Plan/Plan of Care Treatment,Training & Education: Yes Patient would benefit from OT for education, treatment and training to promote independence in ADL's, mobility, safety and/or upper extremity function for ADL' s. Plan of Care: ADL Retraining, Functional Mobility Treatment Duration: Feb 22, 2018 Frequency: 3 times per week Estimated Hrs Per Day: .5 hour per day Agreement: Yes Rehab Potential: Good Time/GCodes Start Time: 11:00 Stop Time: 11:25 Total Time Billed (hr/min): 25 Billed Treatment Time visit, 25 minutes evaluation low intensity WONG YE OT Feb 20, 2018 11:44
[2018-02-20 12:00] VITALS: BP 138/75
--- NOTE | 2018-02-20 12:31 | Progress Note (SOAP) ---
Subjective Date Seen by a Provider: Feb 20, 2018 Time Seen by a Provider: 12:29 Subjective/Events-last exam Fwup right TKR, Hypertension, HIRAL, post-op vertigo with nausea. Vertigo and nausea resolved. Pain well controlled. Objective Exam Vital Signs Date Time Temp Pulse Resp B/P (MAP) Pulse Ox O2 Delivery O2 Flow Rate FiO2 02/20/18 08:00 98.6 80 16 131/60 (83) 96 Nasal Cannula 2.00 02/20/18 07:09 95 Room Air 02/20/18 06:00 18 02/20/18 03:59 97.8 72 18 118/67 (84) 98 Nasal Cannula 2.00 02/20/18 00:44 98.0 81 18 145/67 (93) 98 Nasal Cannula 2.00 02/19/18 23:50 Nasal Cannula 2.50 02/19/18 19:07 96.7 77 18 145/80 (101) 98 Nasal Cannula 2.00 02/19/18 15:35 96.9 54 16 142/70 (94) 99 Nasal Cannula 2.00 02/19/18 14:10 Nasal Cannula 2.50 I & O 02/20/18 07:00 Intake Total 3200 ml Output Total 1400 ml Balance 1800 ml Capillary Refill : Less Than 3 Seconds General Appearance: No Apparent Distress Neck: Supple Respiratory: Lungs Clear Cardiovascular: Regular Rate, Rhythm Gastrointestinal: normal bowel sounds, non tender, soft Extremity: Non Tender, No Calf Tenderness, No Pedal Edema Neurologic/Psychiatric: Alert, Oriented x3 Skin: Warm/Dry (right knee dressing in place) Results Lab Laboratory Tests 02/20/18 04:20: Hemoglobin 12.7L, Hematocrit 36L Assessment/Plan Assessment/Plan Assess & Plan/Chief Complaint 1. Right Total Knee Arthroplasty--pain well controlled and post-op vertigo and nausea resolved 2. Hypertension--back on home meds 3. Hypothyroidism--back on home thyroid dose Clinical Quality Measures DVT/VTE Risk/Contraindication: Risk Factor Score Per Nursin RFS Level Per Nursing on Admit: 4+=Very High GUALBERTO MENA DO Feb 20, 2018 12:31 pm
--- NOTE | 2018-02-20 13:57 | Physical Therapy Daily Note ---
PT Daily Note-Current Subjective Pt awake in bed finishing lunch when PT arrived. Pt reported he had some knee pain but wanted to continue with PT. Pain Numeric Pain Scale: 7 Location: Right Location Body Site: Knee Pain Description: Acute Mental Status Patient Orientation: Normal For Age Attachments: Polar Pack, IV Transfers Functional [place] Measure 0=Not Assessed/NA 4=Minimal Assistance 1=Total Assistance 5=Supervision or Setup 2=Maximal Assistance 6=Modified [place] 3=Moderate Assistance 7=Complete IndependenceIRFPAI Quality Coding Scale 6 Independent with activity with or without an assistive device 5 Patient requires set up or clean up by helper. Patient completes activity by themselves 4 Supervision or touching assist (CGA). [place] provide cues , steadying assist 3 The helper provides less than half the effort to complete the activity 2 The helper provides more than half the effort to complete the activity 1 Dependent. The helper does all the effort to complete an activity 7 Patient refused to complete or attempt activity 9 The patient did not perform the activity before the current illness or injury 88 Not attempted due to Medical conditions or safety concerns Transfers (B, C, W/C) (FIM): 5 Scootin Rollin Supine to/from Sit: 5 Sit to/from Stand: 5 Weight Bearing Right Lower Extremity: Right Weight Bearing/Tolerated Left Lower Extremity: Left Full Weight Bearing Gait Training Gait (FIM): 5 Distance (FIM): 3=150 ft Distance: 200' Gait Level of Assist: 5 Gait Persons Needed: 1 Gait Assistive Device: FWW Exercises Supine Ex: Quad Set, Heel Slides, Short Arc Quads, Straight leg raise Supine Reps: 15 Seated Therapy Exercises: Long arc quads, Hamstring Curls Seated Reps: 15 Assessment Current Status: Good Progress Pt was able to ambulate 200' with FWW requiring SBA. Patient reported a 7/10 pain while walking and had a pain pill at start of exercise. Patient returned to room and was able to perform multiple LE exercises. Patient returned to bed with leg in CPM when PT left room. PT Gas Pump Attendant Goals Gas Pump Attendant Goals PT Gas Pump Attendant Goals Time Frame: Feb 26, 2018 Transfers (B,C,W/C) (FIM): 5 Gait (FIM): 5 Gait distance (FIM): 3=150 ft Distance: 150' Gait Level of Assist: 5 Gait Assistive Device: FWW PT Plan Problem List Problem List: Activity Tolerance, Functional Strength, Safety, Balance, Gait, Transfer, Bed Mobility, ROM Treatment/Plan Treatment Plan: Continue Plan of Care Treatment Plan: Bed Mobility, Education, Functional Activity Jorge Luis, Functional Strength, Gait, Safety, Therapeutic Exercise, Transfers Treatment Duration: Feb 26, 2018 Frequency: 11 times per week Estimated Hrs Per Day: .25 hour per day Patient and/or Family Agrees t: Yes Time/GCodes Time In: 1317 Time Out: 1346 Total Billed Treatment Time: 26 Total Billed Treatment 1 Visit GT - 11' EX - 15' ZHAO CHEN PT Feb 20, 2018 13:57
[2018-02-20 16:04] VITALS: BP 128/57
[2018-02-20 20:26] VITALS: BP 138/63
[2018-02-21 00:37] VITALS: BP 157/74
[2018-02-21 04:05] VITALS: BP 167/74
[2018-02-21] MEDS: oxyCODONE/APAP 5/325MG (PERCOCET 5) TABLET PO PRN ×4 (05:49→15:50)
[2018-02-21] MEDS: MULTIVIT W/MINERALS TAB (THERAGRAN M) PO SCH (06:02)
[2018-02-21] MEDS: CELECOXIB 100 MG (CeleBREX) CAP PO SCH (06:02)
[2018-02-21] MEDS ORDERED: LEVOTHYROXINE 100 MCG (LEVOTHROID) TAB PO SCH (06:30)
[2018-02-21] MEDS ORDERED: LEVOTHYROXINE 75 MCG (LEVOTHROID) TABLET PO SCH (06:30)
[2018-02-21 07:02] LABS: HEMOGLOBIN 11.8 G/DL (13.3-17.7)
--- NOTE | 2018-02-21 07:13 | Progress Note-Standard ---
Standard Progress Note Progress Notes/Assess & Plan Date Seen by a Provider: Feb 21, 2018 Time Seen by a Provider: 07:12 Progress/Assessment & Plan post op check denies paresthesias radiographs--HW well positioned without fracture RLE--intact DF and PF of toes and ankle with 2 plus DP pulse and brisk cap refill. sensation intact throughout s/p RTKA mobilize as able Final Diagnosis no complaints Vital Signs Date Time Temp Pulse Resp B/P (MAP) Pulse Ox O2 Delivery O2 Flow Rate FiO2 02/21/18 06:00 18 02/21/18 04:05 98.7 67 18 167/74 (105) 99 Room Air 02/21/18 00:37 98.1 68 20 157/74 (101) 99 Room Air 02/20/18 20:26 97.5 79 18 138/63 (88) 96 Room Air 02/20/18 18:00 18 02/20/18 16:04 98.4 70 20 128/57 (80) 97 Room Air 02/20/18 12:00 98.5 59 16 138/75 (96) 99 Nasal Cannula 2.00 02/20/18 08:00 98.6 80 16 131/60 (83) 96 Nasal Cannula 2.00 I & O 02/21/18 07:00 Intake Total 2640 ml Output Total 2075 ml Balance 565 ml Laboratory Tests Test 02/21/18 06:25 Range/Units Hemoglobin 11.8 L 13.3-17.7 G/DL Hematocrit 35 L 40-54 % RLE--incision clean and dry. No calf tenderness. Neg Nathaniel's s/p RTKA doing well DC later today if doing well RYAN SHEIKH MD Feb 21, 2018 07:13
[2018-02-21] MEDS ORDERED: fentaNYL INJECTION 100 MCG/2 ML AMP IVP PRN (07:15)
--- NOTE | 2018-02-21 07:47 | DISCHARGE SUMMARY ---
DATE OF SERVICE: DIAGNOSES: 1. Right knee primary osteoarthritis. 2. Hypertension. 3. Hypothyroidism. PROCEDURE: Right total knee arthroplasty. SUMMARY: The patient is a 57-year-old gentleman with longstanding right knee pain and known osteoarthritis. He was admitted the day of right total knee arthroplasty, which he underwent without complications. Postoperatively, he did very well. At the time of discharge, his wound was clean and dry. He had no calf tenderness and negative Homans sign. He was tolerating his diet well and tolerating pain with oral pain medication. CONDITION AT DISCHARGE: Good. DISCHARGE DIET: Regular. FOLLOWUP: Followup is in three weeks. Home physical therapy has been arranged. DISCHARGE MEDICATIONS: Home medications, Percocet and aspirin. Job ID: [id number] DocumentID: [id number] Dictated Date: 02/21/2018 07:06:06 Car Dispatcher Date: 02/21/2018 07:46:57 Dictated By: RYAN SHEIKH MD
[2018-02-21 08:00] VITALS: BP 150/81
--- NOTE | 2018-02-21 08:25 | Physical Therapy Daily Note ---
PT Daily Note-Current Subjective Pt was asleep in bed when PT arrived this morning. Pt woke up to greeting and reporting more pain this morning. Pt wanted to continue with PT. Pain Numeric Pain Scale: 6 Location: Right Location Body Site: Knee Pain Description: Acute Mental Status Patient Orientation: Normal For Age Attachments: Polar Pack, IV Transfers Functional [place] Measure 0=Not Assessed/NA 4=Minimal Assistance 1=Total Assistance 5=Supervision or Setup 2=Maximal Assistance 6=Modified [place] 3=Moderate Assistance 7=Complete IndependenceIRFPAI Quality Coding Scale 6 Independent with activity with or without an assistive device 5 Patient requires set up or clean up by helper. Patient completes activity by themselves 4 Supervision or touching assist (CGA). [place] provide cues , steadying assist 3 The helper provides less than half the effort to complete the activity 2 The helper provides more than half the effort to complete the activity 1 Dependent. The helper does all the effort to complete an activity 7 Patient refused to complete or attempt activity 9 The patient did not perform the activity before the current illness or injury 88 Not attempted due to Medical conditions or safety concerns Transfers (B, C, W/C) (FIM): 6 Scootin Rollin Supine to/from Sit: 6 Sit to/from Stand: 6 Weight Bearing Right Lower Extremity: Right Weight Bearing/Tolerated Left Lower Extremity: Left Full Weight Bearing Gait Training Gait (FIM): 6 Distance (FIM): 3=150 ft Distance: 200' Gait Level of Assist: 6 Gait Persons Needed: 1 Gait Assistive Device: FWW Exercises Seated Therapy Exercises: Ankle pumps, Long arc quads, Hamstring Curls Seated Reps: 15 Assessment Current Status: Good Progress PT was able to ambulate for 200' with a FWW requiring SBA. Pt returned to chair in room and performed LE exercises. Pt stated he had more pain throughout the night when his block wore off and will make sure to take his pain pills. Pt considered Mod I and will potentially go home today. PT Senior Living Goals Lathe Set Up Operator Goals PT Lathe Set Up Operator Goals Time Frame: Feb 26, 2018 Transfers (B,C,W/C) (FIM): 5 Gait (FIM): 5 Gait distance (FIM): 3=150 ft Distance: 150' Gait Level of Assist: 5 Gait Assistive Device: FWW PT Plan Problem List Problem List: Activity Tolerance, Functional Strength, Gait Treatment/Plan Treatment Plan: Continue Plan of Care Treatment Plan: Bed Mobility, Education, Functional Activity Jorge Luis, Functional Strength, Gait, Safety, Therapeutic Exercise, Transfers Treatment Duration: Feb 26, 2018 Frequency: 11 times per week Estimated Hrs Per Day: .25 hour per day Patient and/or Family Agrees t: Yes Time/GCodes Time In: 736 Time Out: 803 Total Billed Treatment Time: 27 Total Billed Treatment 1 visit GT - 15' EX - 12' ZHAO CHEN PT Feb 21, 2018 08:25
[2018-02-21] MEDS: VITAMIN D3 5,000 UNITS (CHOLECALCIFEROL ) CAPSULE PO SCH (08:36)
[2018-02-21] MEDS: lisINopril 40 MG (PRINIVIL) TABLET PO SCH (08:37)
[2018-02-21] MEDS: ASPIRIN E.C. 81 MG (ECOTRIN) TAB PO SCH (08:37)
[2018-02-21] MEDS: FAMOTIDINE 20 MG (PEPCID) TABLET PO SCH (08:37)
[2018-02-21] MEDS: ENOXAPARIN 30 MG/0.3 ML (LOVENOX) SYR SC SCH (08:37)
[2018-02-21] MEDS: SENNA W/DOCUSATE (SENOKOT S) TABLET PO SCH (08:37)
--- NOTE | 2018-02-21 10:50 | Progress Note (SOAP) ---
Subjective Date Seen by a Provider: Feb 21, 2018 Time Seen by a Provider: 10:48 Subjective/Events-last exam Fwup right TKR, Hypertension, HIRAL, post-op vertigo with nausea. Had rough night because he let the pain get ahead of him. Pain better now and resting. Objective Exam Vital Signs Date Time Temp Pulse Resp B/P (MAP) Pulse Ox O2 Delivery O2 Flow Rate FiO2 02/21/18 08:15 96 Nasal Cannula 2.00 02/21/18 08:00 97.8 68 20 150/81 (104) 99 Room Air 02/21/18 06:00 18 02/21/18 04:05 98.7 67 18 167/74 (105) 99 Room Air 02/21/18 00:37 98.1 68 20 157/74 (101) 99 Room Air 02/20/18 20:26 97.5 79 18 138/63 (88) 96 Room Air 02/20/18 18:00 18 02/20/18 16:04 98.4 70 20 128/57 (80) 97 Room Air 02/20/18 12:00 98.5 59 16 138/75 (96) 99 Nasal Cannula 2.00 I & O 02/21/18 07:00 Intake Total 2640 ml Output Total 2075 ml Balance 565 ml Capillary Refill : Less Than 3 Seconds General Appearance: No Apparent Distress Neck: Supple Respiratory: Lungs Clear Cardiovascular: Regular Rate, Rhythm Gastrointestinal: normal bowel sounds, non tender, soft Extremity: Non Tender, No Calf Tenderness, No Pedal Edema Neurologic/Psychiatric: Alert, Oriented x3 Skin: Warm/Dry (with dressing to right knee) Results Lab Laboratory Tests 02/21/18 06:25: Hemoglobin 11.8L, Hematocrit 35L Assessment/Plan Assessment/Plan Assess & Plan/Chief Complaint 1. Right Total Knee Arthroplasty--pain control, patient will either DC to home later today or first thing tomorrow depending on how he is doing 2. Hypertension--back on home meds, stable 3. Hypothyroidism--back on home thyroid dose Clinical Quality Measures DVT/VTE Risk/Contraindication: Risk Factor Score Per Nursin RFS Level Per Nursing on Admit: 4+=Very High GUALBERTO MENA DO Feb 21, 2018 10:50 am
[2018-02-21] MEDS ORDERED: SENN-40 PO (10:51)
[2018-02-21] MEDS ORDERED: ASPI-586 PO (10:54)
--- NOTE | 2018-02-21 11:38 | Physical Therapy Daily Note ---
PT Daily Note-Current Subjective Pt asleep in bed when PT arrived. Pt woke up to greeting and agreed to continue with PT. Pain Location: Right Location Body Site: Knee Pain Description: Acute Mental Status Patient Orientation: Normal For Age Attachments: Polar Pack, IV Transfers Functional [place] Measure 0=Not Assessed/NA 4=Minimal Assistance 1=Total Assistance 5=Supervision or Setup 2=Maximal Assistance 6=Modified [place] 3=Moderate Assistance 7=Complete IndependenceIRFPAI Quality Coding Scale 6 Independent with activity with or without an assistive device 5 Patient requires set up or clean up by helper. Patient completes activity by themselves 4 Supervision or touching assist (CGA). Glynn provide cues , steadying assist 3 The helper provides less than half the effort to complete the activity 2 The helper provides more than half the effort to complete the activity 1 Dependent. The helper does all the effort to complete an activity 7 Patient refused to complete or attempt activity 9 The patient did not perform the activity before the current illness or injury 88 Not attempted due to Medical conditions or safety concerns Transfers (B, C, W/C) (FIM): 6 Scootin Rollin Supine to/from Sit: 6 Sit to/from Stand: 6 Weight Bearing Right Lower Extremity: Right Weight Bearing/Tolerated Left Lower Extremity: Left Full Weight Bearing Gait Training Gait (FIM): 6 Distance (FIM): 3=150 ft Distance: 200' Gait Level of Assist: 6 Gait Persons Needed: 1 Gait Assistive Device: FWW Exercises Supine Ex: Quad Set, Heel Slides, Straight leg raise Supine Reps: 15 Seated Therapy Exercises: Ankle pumps, Long arc quads, Hamstring Curls Seated Reps: 15 Assessment Current Status: Good Progress Pt is able to ambulate for 200' with FWW and is a Mod I. Pt returned to bed and performed LE exercises before starting CPM. PT left pt in room with CPM at 2-0- 85 flexion. PT Lead Data Architect Goals Mcc Goals PT Mcc Goals Time Frame: Feb 26, 2018 Transfers (B,C,W/C) (FIM): 5 Gait (FIM): 5 Gait distance (FIM): 3=150 ft Distance: 150' Gait Level of Assist: 5 Gait Assistive Device: FWW PT Plan Problem List Problem List: Activity Tolerance, Functional Strength, Safety, Balance, Gait, Transfer, Bed Mobility Treatment/Plan Treatment Plan: Discontinue PT, goals met Treatment Plan: Bed Mobility, Education, Functional Activity Jorge Luis, Functional Strength, Gait, Safety, Therapeutic Exercise, Transfers Treatment Duration: Feb 26, 2018 Frequency: 11 times per week Estimated Hrs Per Day: .25 hour per day Patient and/or Family Agrees t: Yes Time/GCodes Time In: 1050 Time Out: 1113 Total Billed Treatment Time: 23 Total Billed Treatment 1 Visit EX - 10 mins GT - 13 mins ZHAO CHEN PT Feb 21, 2018 11:38
[2018-02-21 12:00] VITALS: BP 169/84
[2018-02-21 15:35] VITALS: BP 168/79
--- NOTE | 2018-02-21 16:13 | Occupational Ther Daily Note ---
OT Current Status-Daily Note Subjective Pt requested OT before discharge for ADL information. Pt seen in room, up in bed , agreeable. Mental Status/Objective Functional [place] Measure 0=Not Assessed/NA 4=Minimal Assistance 1=Total Assistance 5=Supervision or Setup 2=Maximal Assistance 6=Modified [place] 3=Moderate Assistance 7=Complete [place] ADL-Treatment Pt education on use of sock aid, use of dressing stick, mod technique for putting on ALBERTO hose, use of stool riser, where to purchase items now and over the weekend. Pt verbal understanding. Pt left up in bed, all needs met. Education OT Patient Education: Modified ADL techniques, Purpose of tx/functional activities, Safety issues, Use of adapted equipment Teaching Recipient: Patient Teaching Methods: Demonstration, Discussion Response to Teaching: Verbalize Understanding OT Short Term Goals Short Term Goals 1=Demonstrate adherence to instructed precautions during ADL tasks. 2=Patient will verbalize/demonstrate understanding of assistive devices/ modifications for ADL. 3=Patient will improve strength/tolerance for activity to enable patient to perform ADL's. OT Windows Application Packager Goals Windows Application Packager Goals Time Frame: Feb 22, 2018 Bathing(FIM): 5 Upper Body Dressing(FIM): 6 Lower Body Dressing(FIM): 6 Toileting(FIM): 6 Toilet/Commode Transfer(FIM): 6 Shower Transfer(FIM): 5 Additional Goals: 1-Demonstrate ADL Tasks, 2-Verbalize Understanding, 3- ImproveStrength/Jorge Luis 1=Demonstrate adherence to instructed precautions during ADL tasks. 2=Patient will verbalize/demonstrate understanding of assistive devices/ modifications for ADL. 3=Patient will improve strength/tolerance for activity to enable patient to perform ADL's. OT Education/Plan Problem List/Assessment Pt would benefit from skilled OT to increase his independence in basic self care to allow him to safely return home. Discharge Recommendations Plan/Recommendations: Discharge/Goals Met (to patient satisfaction) Treatment Plan/Plan of Care Patient would benefit from OT for education, treatment and training to promote independence in ADL's, mobility, safety and/or upper extremity function for ADL' s. Plan of Care: ADL Retraining, Functional Mobility Treatment Duration: Feb 22, 2018 Frequency: 3 times per week Estimated Hrs Per Day: .5 hour per day Agreement: Yes Rehab Potential: Good Time/GCodes Start Time: 15:50 Stop Time: 16:00 Total Time Billed (hr/min): 10 Billed Treatment Time visit, 10 minutes ADL WONG YE OT Feb 21, 2018 16:13
[2018-02-21 16:23] VITALS: BP 168/79
== END 2018-02-21 16:20 | disposition home health service (06) | DRG 470 ==
LOC: 4TH 05:57 → SURG 05:58 → 4TH 10:25
PROVIDERS: ADMIT Orthopaedic Surgery; ATTEND Orthopaedic Surgery
PROC: 0SRC0J9 Replacement of Right Knee Joint with Synthetic Substitute, Cemented, Open Approach (ICD-10-PCS; principal; 2018-02-19 07:27)
DX: M17.11 Unilateral primary osteoarthritis, right knee (principal); M25.761 Osteophyte, right knee; I10 Essential (primary) hypertension; E03.9 Hypothyroidism, unspecified; G47.33 Obstructive sleep apnea (adult) (pediatric); R42 Dizziness and giddiness; R11.0 Nausea; Z87.891 Personal history of nicotine dependence
CPT/HCPCS: 36415; 73560; 85014; 85018; 86850; 86900; 86901; 94664

== ENCOUNTER 2018-04-18 09:26 | Outpatient (RCR) | payer OTHER ==
[~2018-04-18 09:26] MED LIST changes: +ASPI-586 PO; +CHOL5000 PO; +OMEG1CAP24 PO; +OXYC1TAB87 PO; +SENN-40 PO
== END 2018-04-22 08:44 | disposition home or self-care (01) ==
PROVIDERS: ATTEND Orthopaedic Surgery
DX: Z47.1 Aftercare following joint replacement surgery (principal); Z96.651 Presence of right artificial knee joint

== ENCOUNTER 2018-06-03 10:04 | Outpatient (RCR) | payer BC, OTHER | END 2018-07-15 | disposition home or self-care (01) | PROVIDERS: ATTEND Orthopaedic Surgery | DX: Z47.1 Aftercare following joint replacement surgery (principal); Z96.651 Presence of right artificial knee joint ==

== ENCOUNTER → 2019-04-21 | Outpatient (CLI) | payer BC ==
[~2019-04-21] VITALS: Ht 178 cm; Wt 108.0 kg
[~2019-04-21] MED LIST changes: +REGADENOSON 0.4 MG/5 ML SYR (LEXISCAN) IV ONE
[2019-04-21] MEDS: CATHETER FLUSH 10 ML SYR IV PRN ×2 (07:17→08:35)
[2019-04-21 08:10] VITALS: BP 153/77
[2019-04-21 08:36] VITALS: BP 193/71
--- NOTE | 2019-04-21 12:46 | STRESS TEST ---
DATE OF SERVICE: 04/21/2019 RESTING AND POST REGADENOSON TECHNETIUM-99M TETROFOSMIN SPECT CT IMAGING ORDERING PHYSICIAN: Daniel Gomez MD, GEE, FACP, FACC. PRIMARY PHYSICIAN: Dr. Hernandez. CLINICAL DIAGNOSES: Chest discomfort, hyperlipidemia, hypertension. Baseline images were carried out after injection of 10.42 mCi of technetium-99m Tetrofosmin. This was followed by 0.4 mg regadenoson and 30.3 mCi of technetium-99m Tetrofosmin for stress imaging. The electrocardiogram showed sinus rhythm at baseline. It did not change significantly with regadenoson infusion. The patient reported shortness of breath and an upset stomach and a feeling of flushing following regadenoson infusion, which resolved in a few minutes. Review of images at rest and following stress indicates diminished count uptake in the inferior wall, both at rest and following regadenoson infusion. This appears to be diaphragmatic attenuation. Gated images show normal global left ventricular systolic function with normal regional wall motion, including the inferior wall. Left ventricular ejection fraction appear as calculated to be 48%, but appears subjectively to be higher than that. TID is absent (1.13). CONCLUSIONS: 1. No evidence of significant myocardial ischemia or infarction on this study. 2. Normal regional wall motion. 3. Well preserved global left ventricular systolic function. Left ventricular ejection fraction is calculated to be 48%, but appears subjectively to be higher than that. Job ID: [id number] DocumentID: [id number] Dictated Date: 04/21/2019 10:36:52 Dental Specialist Date: 04/21/2019 12:46:13 Dictated By: DANIEL GOMEZ MD, GEE, FACP, FACC,
== END ==
LOC: CARD 07:08
PROVIDERS: ATTEND Internal Medicine Cardiovascular Disease
DX: E78.5 Hyperlipidemia, unspecified (principal); I10 Essential (primary) hypertension
CPT/HCPCS: 78452; 93017

== ENCOUNTER → 2019-04-30 | Outpatient (CLI) | payer BC ==
[~2019-04-30] MED LIST changes: -REGADENOSON 0.4 MG/5 ML SYR (LEXISCAN) IV ONE
== END ==
LOC: CARD 10:34
PROVIDERS: ATTEND Nurse Practitioner Family
DX: I10 Essential (primary) hypertension (principal)
CPT/HCPCS: 93306

== ENCOUNTER → 2019-09-24 | Outpatient (CLI) | payer BC ==
[2019-09-24 08:45] LABS: ALANINE AMINOTRANSFERASE 28 U/L (0-55); ALBUMIN 4.1 GM/DL (3.2-4.5); ALKALINE PHOSPHATASE 62 U/L (40-136); BILIRUBIN,TOTAL 0.8 MG/DL (0.1-1.0); BUN/CREATININE RATIO 27; CALCIUM 9.2 MG/DL (8.5-10.1); CARBON DIOXIDE 20 MMOL/L (21-32); CHLORIDE 110 MMOL/L (98-107); CREATININE SERUM 0.83 MG/DL (0.60-1.30); GFR ESTIMATED > 60; GLUCOSE 117 MG/DL (70-105); POTASSIUM 3.9 MMOL/L (3.6-5.0); SODIUM 141 MMOL/L (135-145); TOTAL PROTEIN 6.4 GM/DL (6.4-8.2)
--- NOTE | 2019-09-24 14:14 | Diagnostic Imaging Report ---
PROCEDURE: MR imaging cervical spine without contrast. INDICATION: Chronic cervical spine pain. Limited range of motion increasing in severity. TECHNIQUE: Multiplanar, multisequence MR imaging of the cervical spine was performed without contrast. CORRELATION STUDY: None FINDINGS: Overall examination is compromised by patient motion artifact and multiple imaging sequences. Static imaging demonstrates some straightening and mild reversal of the normal cervical lordosis. Alignment otherwise anatomic. Very slight loss of height and anterior wedging particularly at C4, C5, C6 and C7 levels. This appears chronic. No overt loss of height. No concerning geographic lesion. Odontoid appears to be slightly small but intact. Cervical cranial junction unremarkable. The cord is of normal caliber and signal intensity. C2-C3 level: Unremarkable. C3-C4 level: Asymmetric endplate spurring on the right with resultant right foraminal narrowing. Left foramina and spinal canal otherwise without stenosis. C4-C5 level: Fairly good preservation of disc space height. Mild endplate osteophyte formation results in mild foraminal narrowing bilaterally. No spinal canal stenosis. C5-C6 level: Prominent endplate spurring particularly on the right with asymmetric right foraminal narrowing. No significant spinal canal stenosis. C6-C7 level: Mild asymmetric disc osteophyte formation of the right with right foraminal narrowing. Less severe narrowing on the left. Spinal canal without appreciable stenosis. C7-T1 level: Moderate loss of disc space height. Disc osteophyte formation with flattening of the ventral thecal sac. AP dimension canal narrowed to 8 mm. Moderate bilateral foraminal narrowing. IMPRESSION: 1. Prominent multilevel cervical spondylosis. There are various degrees of the neural foraminal and to a lesser degree, spinal canal narrowing as detailed above. This is owing predominantly degenerative endplate spurring and mild broad-based disc bulge. Dictated by: Dictated on workstation # [id number]
== END ==
LOC: RAD 08:14
PROVIDERS: ATTEND Internal Medicine
DX: M47.22 Other spondylosis with radiculopathy, cervical region (principal); M48.02 Spinal stenosis, cervical region; M50.13 Cervical disc disorder with radiculopathy, cervicothoracic region; M25.78 Osteophyte, vertebrae
CPT/HCPCS: 36415; 72141; 80053

== ENCOUNTER → 2019-11-11 | Outpatient (CLI) | payer BC ==
--- NOTE | 2019-11-11 16:50 | Diagnostic Imaging Report ---
EXAMINATION: Cervical spine flexion and extension. INDICATION: Degenerative disc disease. FINDINGS: Flexion and extension views of the cervical spine were obtained in the lateral projection. There are no prior plain film cervical spine examinations available for comparison. The MRI cervical spine exam of 09/24/2019 revealed multilevel cervical spondylosis. On this exam, there are again prominent osteophytes along the ventral aspects of the C5-C6 and C6-C7 disc spaces. There are also smaller osteophytes along the superior endplate of C5 and the inferior endplate of C2. There is also moderate narrowing of the disc space at C6-C7 and mild narrowing at C5-C6. The other intervertebral disc spaces are fairly well maintained. There is no abnormal motion between the vertebral bodies with flexion or extension to suggest instability. There is no fracture or acute bony abnormality noted either. There is no sign of retropharyngeal edema. IMPRESSION: 1. There is no evidence for an acute bony abnormality or for instability. 2. The degenerative disc and bony disease involving the cervical spine seen on the previous MRI exam is again evident and does not appear to have changed significantly. Dictated by: Dictated on workstation # [id number]
== END ==
LOC: RAD 15:49
PROVIDERS: ATTEND Neurological Surgery
DX: M50.322 Other cervical disc degeneration at C5-C6 level (principal); M54.81 Occipital neuralgia; R13.10 Dysphagia, unspecified
CPT/HCPCS: 72040

== ENCOUNTER 2020-07-26 18:17 | Emergency (ER) | payer BC, OTHER ==
[~2020-07-26] VITALS: Ht 177.8 cm; Wt 127.2 kg
[~2020-07-26 18:17] MED LIST changes: -LISI40TA PO; +LISI40TA9 PO
--- NOTE | 2020-07-26 18:35 | ED Abdominal Pain ---
General Chief Complaint: Abdominal/GI Problems Stated Complaint: ABD PAIN Source of Information: Patient Exam Limitations: No Limitations (ELMA GAMA APRN) History of Present Illness Date Seen by Provider: Jul 26, 2020 Time Seen by Provider: 18:33 Initial Comments To ER with suprapubic abdominal pain that began this morning. He had 2 bowel movements which were normal although there was a little unusual mucus in them. He denies fevers or chills. He is not had any nausea until just recently this evening. No fevers or chills. He does have a history of diverticulitis several years ago. He has also had a colonoscopy. Primary care is out of [facility]. Timing/Duration: 12 Hours Severity/Quality: Moderate Location: Suprapubic Radiation: No Radiation Activities at Onset: None (ELMA GAMA APRN) Allergies and Home Medications Allergies Coded Allergies: morphine (Verified Allergy, Unknown, 02/10/18) Home Medications Aspirin 81 Mg Tablet., 81 MG PO DAILY Prescribed by: GUALBERTO MENA on 02/21/18 1054 Celecoxib 200 Mg Capsule, 200 MG PO BID, (Reported) Cholecalciferol (Vitamin D3) 5,000 Unit Capsule, 10,000 UNIT PO DAILY, (Reported) Levothyroxine Sodium 150 Mcg Tablet, 150 MCG PO Q48H, (Reported) alternate with the 175mcg dose Levothyroxine Sodium 175 Mcg Tablet, 175 MCG PO Q48H, (Reported) alternate with the 150mcg dose Lisinopril 40 Mg Tablet, 40 MG PO DAILY, (Reported) [place]-3 Fatty Acids/Fish Oil 1 Each Capsule., 2 CAP PO DAILY, (Reported) Oxycodone HCl/Acetaminophen 1 Each Tablet, 1 EACH PO Q4H PRN for PAIN-MODERATE Prescribed by: RYAN SHEIKH on 02/19/18 0731 Sennosides/Docusate Sodium 1 Each Tablet, 2 EACH PO BID Prescribed by: GUALBERTO MENA on 02/21/18 1051 Vitamin B Complex 1 Each Tablet, 1 TAB PO DAILY, (Reported) Patient Home Medication List Home Medication List Reviewed: Yes (ELMA GAMA APRN) Review of Systems Review of Systems Constitutional: see HPI; No chills, No fever EENTM: No Symptoms Reported Respiratory: No Symptoms Reported Cardiovascular: No Symptoms Reported Gastrointestinal: See HPI, Abdominal Pain, Nausea Genitourinary: No Symptoms Reported Musculoskeletal: no symptoms reported Skin: no symptoms reported Psychiatric/Neurological: No Symptoms Reported Endocrine: No Symptoms Reported Hematologic/Lymphatic: No Symptoms Reported (ELMA GAMA APRN) Past Llgqupw-Mpvcgy-Zowyem Hx Past Med/Social Hx: Reviewed Nursing Past Med/Soc Hx (JAVIER WATSON MD) Patient Social History Former Smoker, Quit: Feb 11, 1984 Recent Hopitalizations: No (ELMA GAMA APRN) Seasonal Allergies Seasonal Allergies: No (ELMA GAMA APRN) Past Medical History Surgeries: Yes (bilat knee scopes x8 total, L shoulder sx x2, varicocelectomy, L CTR, ) Respiratory: No Cardiac: No Neurological: No Genitourinary: No Gastrointestinal: No Musculoskeletal: Yes (R knee osteoarthritis) Endocrine: Yes HEENT: No (wears glasses, ) Cancer: No Psychosocial: No Integumentary: No Blood Disorders: No (ELMA GAMA APRN) Family Medical History Reviewed Nursing Family Hx (JAVIER WATSON MD) Alcoholism 19 FATHER Diabetes mellitus 19 MOTHER FH: breast cancer 19 MOTHER Hypertension 19 MOTHER Kidney disease Neoplasm Respiratory disorder 19 FATHER (lung cancer) Physical Exam Vital Signs Capillary Refill : (ELMA GAMA APRN) Height/Weight/BMI Height: 5'10.00" Weight: 243lbs. 0.0oz. 110.608263uw; 34.08 BMI Method:Stated General Appearance: WD/WN, no apparent distress, obese, other (Alert and oriented no distress. Very pleasant.) Neck: non-tender, full range of motion Respiratory: normal breath sounds, no respiratory distress, no accessory muscle use Cardiovascular: regular rate, rhythm, no murmur Gastrointestinal: normal bowel sounds, soft, tenderness (Suprapubic) Extremities: normal range of motion, non-tender Neurologic/Psychiatric: alert, normal mood/affect, oriented x 3 Skin: normal color, warm/dry (ELMA GAMA APRN) HEENT: PERRL/EOMI, pharynx normal Back: normal inspection, no CVA tenderness, no vertebral tenderness (JAVIER WATSON MD) Progress/Results/Core Measures Progress Progress Note : Progress Note I have seen and evaluated the patient with Elma Gama APRN and agree with above history and physical. Patient is here with left lower quadrant abdominal pain starting this morning. States it feels like his previous diverticulitis and he did not want to get too bad before he sought care. Denies vomiting. Does have a little nausea or bubbling. We will check labs and get CT to rule out perforation due to report of fullness in the left lower quadrant. We will initiate fluids and Toradol with ondansetron. Monitor patient. (JAVIER WATSON MD) Departure Communication (Admissions) NAME: BLAIR [facility] REC#: [id number] PT STATUS: REG ER : 1960 PHYSICIAN: ELMA GAMA APRN ADMIT DATE: 07/26/20/ER Draft Date of Exam:07/26/20 CT ABDOMEN/PELVIS W PROCEDURE: CT abdomen and pelvis with contrast. TECHNIQUE: Multiple contiguous axial images were obtained through the abdomen and pelvis after administration of intravenous contrast. Auto Exposure Controls were utilized during the CT exam to meet ALARA standards for radiation dose reduction. All CT scans use one or more of the following dose optimizing techniques: automated exposure control, MA and/or KvP adjustment based on patient size and exam type or iterative reconstruction. INDICATION: Lower abdominal pain. COMPARISON: 09/07/2011 No focal hepatic, gallbladder, pancreatic, adrenal gland or splenic abnormality is identified. The kidneys are also stable and unremarkable in appearance. There is moderate inflammation surrounding the distal descending colon near the sigmoid junction. No pericolonic fluid collection is identified. There is no significant pneumoperitoneum. The partially opacified urinary bladder is contracted but otherwise unremarkable in appearance. IMPRESSION: Findings are compatible with acute diverticulitis involving the distal descending colon without evidence of definite perforation or pericolonic abscess. Dictated on workstation # [id number] Dict: 07/26/201922 Trans: 07/26/201927 [facility] [id number] Interpreted by: CAROL FLOYD MD Electronically signed by: (ELMA GAMA APRN) Impression Primary Impression: Sigmoid diverticulitis Disposition: 01 HOME, SELF-CARE Condition: Stable Departure-Patient Inst. Decision time for Depature: 19:29 (ELMA GAMA APRN) Referrals: RYAN BALTAZAR DO (PCP/Family) Primary Care Physician Patient Instructions: Diverticulitis Add. Discharge Instructions: 1. Clear liquids for 24 hours. Nausea medication as needed. Pain medication as directed. Antibiotics as directed. Return to ER for any fevers worsening pain or any other concerns. Follow-up with your doctor later this week or next week for recheck. All discharge instructions reviewed with patient and/or family. Voiced understanding. Scripts Ondansetron (Ondansetron Odt) 8 Mg Tab.rapdis 8 MG PO Q6H PRN for NAUSEA-1ST LINE, #10 TAB Prov: ELMA GAMA APRN 07/26/20 Amoxicillin/Potassium Clav (Augmentin 875-125 Tablet) 1 Each Tablet 1 EACH PO BID, #14 TAB 0 Refills Prov: ELMA GAMA APRN 07/26/20 ELMA GAMA APRN Jul 26, 2020 18:35 JAVIER WATSON MD Jul 26, 2020 18:40
[2020-07-26 18:41] LABS: BASOPHILS # (AUTO) 0.1 10^3/uL (0.0-0.1); BASOPHILS % (AUTO) 1 % (0-10); EOSINOPHILS # (AUTO) 0.3 10^3/uL (0.0-0.3); EOSINOPHILS % (AUTO) 3 % (0-10); HEMATOCRIT 46 % (40-54); HEMOGLOBIN 15.2 g/dL (13.3-17.7); LYMPHOCYTES # (AUTO) 1.5 10^3/uL (1.0-4.0); LYMPHOCYTES % (AUTO) 16 % (12-44); MEAN CORPUSCULAR HEMOGLOBIN 30 pg (25-34); MEAN CORPUSCULAR HGB CONC 33 g/dL (32-36); MEAN CORPUSCULAR VOLUME 89 fL (80-99); MEAN PLATELET VOLUME 8.2 fL (9.0-12.2); MONOCYTES % (AUTO) 11 % (0-12); NEUTROPHILS # (AUTO) 6.9 10^3/uL (1.8-7.8); NEUTROPHILS % (AUTO) 70 % (42-75); PLATELET COUNT 205 10^3/uL (130-400); WHITE BLOOD COUNT 9.8 10^3/uL (4.3-11.0)
[2020-07-26] MEDS ORDERED: ONDANSETRON 4 MG/2 ML (SDV) Z0FRAN IVP ONE (18:45)
[2020-07-26] MEDS ORDERED: NS IV 1000 ML 1,000 ML IV SCH (18:45)
[2020-07-26] MEDS ORDERED: KETOROLAC 30 MG/ML VIAL IVP ONE (18:45)
[2020-07-26 18:52] LABS: ALBUMIN 4.3 GM/DL (3.2-4.5); CHLORIDE 103 MMOL/L (98-107); POTASSIUM 4.2 MMOL/L (3.6-5.0); SODIUM 138 MMOL/L (135-145)
[2020-07-26 18:52] LABS: BILIRUBIN,URINE NEGATIVE (NEGATIVE); CLARITY,URINE CLEAR; COLOR,URINE YELLOW; GLUCOSE, URINE (UA) NEGATIVE (NEGATIVE); KETONES,URINE NEGATIVE (NEGATIVE); LEUKOCYTE ESTERASE ,URINE NEGATIVE (NEGATIVE); NITRITE,URINE NEGATIVE (NEGATIVE); PROTEIN,URINE NEGATIVE (NEGATIVE)
[2020-07-26 18:54] LABS: CALCIUM 9.6 MG/DL (8.5-10.1)
[2020-07-26 18:55] LABS: GLUCOSE 107 MG/DL (70-105); TOTAL PROTEIN 7.4 GM/DL (6.4-8.2)
[2020-07-26 18:56] LABS: CARBON DIOXIDE 22 MMOL/L (21-32)
[2020-07-26 18:57] LABS: BILIRUBIN,TOTAL 0.8 MG/DL (0.1-1.0)
[2020-07-26 18:58] LABS: ALKALINE PHOSPHATASE 92 U/L (40-136)
[2020-07-26 18:59] LABS: CREATININE SERUM 0.91 MG/DL (0.60-1.30); GFR ESTIMATED > 60
[2020-07-26 19:00] LABS: BUN/CREATININE RATIO 18
[2020-07-26 19:01] LABS: BACTERIA,URINE NEGATIVE /HPF
[2020-07-26 19:01] LABS: ALANINE AMINOTRANSFERASE 41 U/L (0-55)
[2020-07-26] MEDS ORDERED: NS 100 ML (IVPB) BAG IV ONE (19:15)
[2020-07-26] MEDS ORDERED: HOLD METFORMIN - RECEIVED CONTRAST 20 ML VIAL IV SCH (19:15)
[2020-07-26] MEDS ORDERED: IOHEXOL 350 MG/ML 100 ML (OMNIPAQUE 350) VIAL IV ONE (19:15)
--- NOTE | 2020-07-26 19:28 | Diagnostic Imaging Report ---
PROCEDURE: CT abdomen and pelvis with contrast. TECHNIQUE: Multiple contiguous axial images were obtained through the abdomen and pelvis after administration of intravenous contrast. Auto Exposure Controls were utilized during the CT exam to meet ALARA standards for radiation dose reduction. All CT scans use one or more of the following dose optimizing techniques: automated exposure control, MA and/or KvP adjustment based on patient size and exam type or iterative reconstruction. INDICATION: Lower abdominal pain. COMPARISON: 09/07/2011 No focal hepatic, gallbladder, pancreatic, adrenal gland or splenic abnormality is identified. The kidneys are also stable and unremarkable in appearance. There is moderate inflammation surrounding the distal descending colon near the sigmoid junction. No pericolonic fluid collection is identified. There is no significant pneumoperitoneum. The partially opacified urinary bladder is contracted but otherwise unremarkable in appearance. IMPRESSION: Findings are compatible with acute diverticulitis involving the distal descending colon without evidence of definite perforation or pericolonic abscess. Dictated by: Dictated on workstation # [id number]
[2020-07-26] MEDS ORDERED: ONDA8TAB13 PO (19:31)
[2020-07-26] MEDS ORDERED: AMOX-358 PO (19:31)
[2020-07-26 19:45] VITALS: BP 160/79
[2020-07-26] MEDS ORDERED: cefTRIAXone FOR IV USE 1,000 MG in WATER (STERILE) FOR INJECTION 10 ML IV ONE (19:45)
[2020-07-26] MEDS ORDERED: RX-HYDROCODONE/APAP 5/325 MG #4 TAB PK PO PRN (19:45)
[2020-07-26] MEDS ORDERED: metroNIDAZOLE 500 MG (FLAGYL) TAB PO ONE (19:45)
== END 2020-07-26 19:45 | disposition home or self-care (01) ==
LOC: EDUNIT# 18:17 → ER 18:19
DX: K57.32 Diverticulitis of large intestine without perforation or abscess without bleeding (principal); Z88.5 Allergy status to narcotic agent; Z87.891 Personal history of nicotine dependence; Z80.1 Family history of malignant neoplasm of trachea, bronchus and lung; Z82.49 Family history of ischemic heart disease and other diseases of the circulatory system; Z80.3 Family history of malignant neoplasm of breast; Z83.3 Family history of diabetes mellitus; Z79.82 Long term (current) use of aspirin
CPT/HCPCS: 36415; 74177; 80053; 81000; 85025; 96374; 96375

== ENCOUNTER → 2020-09-13 | Outpatient (CLI) | payer OTHER ==
[~2020-09-13] MED LIST changes: +AMOX-358 PO; +ONDA8TAB13 PO
== END ==
LOC: LABNPT 06:34
PROVIDERS: ATTEND Emergency Medicine
DX: Z01.812 Encounter for preprocedural laboratory examination (principal); Z20.822 Contact with and (suspected) exposure to COVID-19
CPT/HCPCS: 87635

== ENCOUNTER 2021-02-10 09:55 | Outpatient (RCR) | payer OTHER | END 2021-03-15 | disposition home or self-care (01) | PROVIDERS: ATTEND Emergency Medicine | DX: M21.061 Valgus deformity, not elsewhere classified, right knee (principal); I10 Essential (primary) hypertension; E03.9 Hypothyroidism, unspecified ==

== ENCOUNTER → 2021-07-13 | Outpatient (RCR) | payer OTHER | END | disposition home or self-care (01) | PROVIDERS: ATTEND Orthopaedic Surgery | DX: Z96.651 Presence of right artificial knee joint (principal) ==

== ENCOUNTER 2021-07-27 10:38 | Outpatient (RCR) | payer OTHER | END 2021-07-27 11:25 | disposition home or self-care (01) | PROVIDERS: ATTEND Orthopaedic Surgery | DX: Z96.651 Presence of right artificial knee joint (principal) ==